=== PATIENT | female | born 1945 | race Caucasian/White ===

== ENCOUNTER → 2024-02-07 | Outpatient (CLI) | payer MEDICARE ==
--- NOTE | 2024-02-07 14:11 | NM ---
EXAMINATION TYPE: NM bone scan whole body DATE OF EXAM: 02/07/2024 1:34 PM CLINICAL INDICATION:Female, 78 years old with history of M54.6 PAIN IN THORACIC SPINE; COMPARISON: 01/06/2024 TECHNIQUE: Intravenous administration 21.7 mCi Tc 99m MDP followed by multiple scintigraphic images o f the appendicular and axial skeleton. FINDINGS: There is uptake within the the spine at about the level of T11/T12. Additional uptake within the the area of the right great toe/first digit. No abnormal uptake is identified within the appendicular or axial skeleton to suggest metastatic dise ase. There is increased uptake within the bilateral shoulder, sternoclavicular, and sacroiliac joints con sistent with degenerative changes. No other photopenic areas or areas of increased activity are ident ified. Physiologic radiotracer activity is demonstrated in the kidneys and bladder. IMPRESSION: 1. Uptake at the level of T12 T11 suspicious for compression fracture. Correlate with MRI. 2. Uptake within the right first digit possibly representing degeneration.
== END | disposition home or self-care (01) ==
LOC: RADNMMAIN 07:37
PROVIDERS: ATTEND Physical Medicine & Rehabilitation
DX: M54.6 Pain in thoracic spine (principal)
CPT/HCPCS: 78306; A9503